=== PATIENT | female | born 1990 | race African-American/Black ===

== ENCOUNTER 2018-03-10 09:36 | Inpatient (IN) | payer OTHER ==
[2018-03-10] MEDS ORDERED: Promethazine HCl 25 MG/ML VIAL IM PRN ×3 (10:38→17:10)
[2018-03-10] MEDS ORDERED: Ondansetron PF 4 MG/2 ML Vial IVP PRN ×3 (10:38→17:10)
--- NOTE | 2018-03-10 10:44 | PDOC.LDHP ---
Labor and Delivery H&P Chief complaint: scheduled section HPI: 27 y/o at 39 and 3/7 weeks, EDC 03/14/18, presents for primary C- section for MACROSOMIA (estimated at 10 pounds, 9 ounces), Polyhydramniose with PAYAL 31.4cm, abnormal 1 hour GCT at 145 reported (but GDM highly suspected), with late transfer of care from [place], [place]. Risks, benefits , and alternatives of discussed with patient, who is unwilling to consider trial of labor for this estimated size and probable GDM. Current gestational age (weeks): 39 Due date: 03/14/18 Grav: 4 Para: 4 Abnormal US findings: Yes ( Macrosomia) Current medications: pre- vitamins Previous surgical history: cholecystectomy - Physical Exam Vital signs reviewed and normal: yes General: NAD, resting Heart: RRR Lungs: nonlabored breathing Abdomen: NTTP Extremeties: no edema FHT: category 1 - Assessment L&D Assessment: scheduled primary section - Plan Plan: admit to L&D, to OR for section
[2018-03-10] MEDS ORDERED: CEFAZOLIN/Water 2 GM/20 ML SYRINGE SLOW IVP SCH (10:45)
[2018-03-10 11:04] VITALS: BMI 37.8
[2018-03-10 11:12] LABS: Hemoglobin 10.1 g/dL (12.0-16.0); Mean Corpuscular HGB CONC 33.6 g/dL (32.0-36.0); Mean Corpuscular Hemoglobin 25.6 pg (27.0-31.0); Mean Corpuscular Volume 76.2 fL (78.0-98.0); Mean Platelet Volume 8.4 fL (7.4-10.4); Platelet Count 291 thou/uL (130-400); RBC Distribution Width 14.5 % (11.5-14.5); Red Blood Cell (RBC) Count 3.96 mill/uL (4.20-5.40)
[2018-03-10] MEDS ORDERED: Bicitra 30 ML UDCUP PO SCH (11:30)
[2018-03-10] MEDS ORDERED: CEFAZOLIN 2 GM/50 ML-DEXTROSE 2 GM in Premix Bag 1 BAG IVPB SCH (11:30)
[2018-03-10 11:51] LABS: HBSAg Index 0.25 S/CO (0-0.99); Hep B Surf Ag Non-Reactive S/CO (NonReactive); Syphilis Antibody Nonreactive (Nonreactive); Syphilis Antibody Index 0.07 S/CO (<1.00 Non-Reactive)
[2018-03-10] MEDS ORDERED: Morphine PF 1 MG/ML SYR ONE (12:16)
[2018-03-10] MEDS ORDERED: Oxytocin 10 UNITS/ML VIAL ONE (12:17)
[2018-03-10] MEDS ORDERED: Ondansetron PF 4 MG/2 ML Vial ONE ×2 (12:17→14:01)
[2018-03-10] MEDS ORDERED: ePHEDrine/0.9% NaCl/PF SYRINGE 50 mg/10 ml ONE ×2 (12:17→14:01)
[2018-03-10] MEDS ORDERED: EPINEPHrine 1 MG/ML AMP ONE (12:17)
[2018-03-10] MEDS ORDERED: Fentanyl 100 MCG/2 ML VIAL ONE (13:12)
[2018-03-10] MEDS ORDERED: Promethazine HCl 25 MG SUPP PR PRN (14:32)
[2018-03-10] MEDS ORDERED: Naloxone HCl 0.4 mg/ml Vial IV PRN (14:32)
[2018-03-10] MEDS ORDERED: Naloxone HCl 0.4 mg/ml Vial IVP PRN ×2 (14:32)
[2018-03-10] MEDS ORDERED: Eucerin (Mineral Oil/Petrolatum,White) 30 gm Jar TOP PRN (14:32)
[2018-03-10] MEDS ORDERED: diphenhydrAMINE 50 MG/ML VIAL IVP PRN (14:32)
[2018-03-10] MEDS ORDERED: Communication Order-Pharmacy FS SCH (14:45)
[2018-03-10] MEDS ORDERED: Ketorolac Tromethamine 30 MG/ML VIAL ONE (15:50)
[2018-03-10] MEDS: Ketorolac Tromethamine 30 MG/ML VIAL IVP PRN ×2 (15:51→22:42)
[2018-03-10] MEDS ORDERED: NS / Oxytocin 40 units/1000ml 1,000 ML ONE (16:14)
[2018-03-10] MEDS ORDERED: diphenhydrAMINE 25 MG CAP PO PRN (17:10)
[2018-03-10] MEDS ORDERED: Bisacodyl 10 MG SUPP PR PRN (17:10)
[2018-03-10] MEDS ORDERED: NS / Oxytocin 40 units/1000ml 1,000 ML IV SCH (17:10)
[2018-03-10] MEDS ORDERED: Zolpidem Tartrate 5 MG TAB PO PRN (17:10)
[2018-03-10] MEDS ORDERED: Lanolin Ointment 7 GM TUBE TOP PRN (17:10)
[2018-03-10] MEDS: Docusate Calcium (SURFAK) 240 MG CAP PO SCH (21:33)
[2018-03-11 06:27] LABS: Mean Corpuscular HGB CONC 32.4 g/dL (32.0-36.0); Mean Corpuscular Volume 77.3 fL (78.0-98.0); Mean Platelet Volume 8.3 fL (7.4-10.4); Platelet Count 212 thou/uL (130-400); RBC Distribution Width 14.4 % (11.5-14.5); Red Blood Cell (RBC) Count 2.78 mill/uL (4.20-5.40)
[2018-03-11] MEDS: Prenatal Vitamin 1 TAB PO SCH (08:45)
[2018-03-11] MEDS: Docusate Calcium (SURFAK) 240 MG CAP PO SCH ×2 (08:45→20:07)
[2018-03-11] MEDS: Ketorolac Tromethamine 30 MG/ML VIAL IVP PRN (08:45)
[2018-03-11] MEDS: Simethicone Chewable 80 MG TAB PO PRN ×2 (08:46→18:08)
[2018-03-11] MEDS ORDERED: Varicella virus, LIVE 0.5 ML VIAL SC ONE (09:00)
[2018-03-11] MEDS ORDERED: Adacel (T-DAP) 0.5 ML SYRINGE IM ONE (09:00)
[2018-03-11] MEDS ORDERED: Measles/Mumps/Rubella 10 MCG/0.5 ML VIAL SC ONE (09:00)
[2018-03-11] MEDS: HYDROcodone/Acetaminophen 5/325 mg Tablet PO PRN ×3 (14:06→22:14)
--- NOTE | 2018-03-11 14:34 | PDOC.PP ---
Post Progress Note Post Day #: 1 PO intake tolerated: yes Flatus: yes Ambulation: yes Vital Signs (12 hours) Temp Pulse Resp BP Pulse Ox 03/11/18 11:34 98.3 F 95 20 110/63 03/11/18 08:13 98.5 F 97 20 114/88 98 03/11/18 04:00 98.1 F 98 16 108/65 Weight Weight 234 lb - Physical Examination General: NAD Cardiovascular: no m/r/g Respiratory: clear to auscultation bilaterally, non-labored breathing Abdominal: lochia, no distention, appropriately TTP Extremities: negative homans (B) Skin: CS incision dry & intact, no rash Neurological: no gross focal deficits Psychiatric: A&Ox3, normal affect (Patient has post operative anemia, likely from acute blood loss during surgery, allthough this may be partially dilutional , etc. Will recheck CBC now. Otherwise, patient is stable, and doing very well.) Result Diagrams: 03/11/18 05:34 Additional Labs: Post Labs Blood Type B POSITIVE 03/10/18 11:02 Hep Bs Antigen Non-Reactive S/CO (NonReactive) 03/10/18 11:01
[2018-03-11 14:49] LABS: #Eosinphils 0.1 thou/uL (0.0-0.7); #Lymphocytes 1.9 thou/uL (1.20-3.40); #Monocytes 1.1 thou/uL (0.11-0.59); #Neutrophils 9.6 thou/uL (1.40-6.50); %Basophils 0.2 % (0.0-1.0); %Eosinophils 0.4 % (0.0-10.0); %Lymphocytes 14.8 % (21.0-51.0); %Monocytes 8.5 % (0.0-10.0); %Neutrophils 76.1 % (42.0-75.0); Mean Corpuscular HGB CONC 32.9 g/dL (32.0-36.0); Mean Corpuscular Hemoglobin 25.5 pg (27.0-31.0); Mean Corpuscular Volume 77.5 fL (78.0-98.0); Mean Platelet Volume 7.9 fL (7.4-10.4); Platelet Count 215 thou/uL (130-400); RBC Distribution Width 14.5 % (11.5-14.5); Red Blood Cell (RBC) Count 2.74 mill/uL (4.20-5.40); White Blood Cell (WBC) Count 12.6 thou/uL (4.8-10.8)
[2018-03-11] MEDS: Ibuprofen 800 MG TAB PO SCH (20:07)
--- NOTE | 2018-03-11 21:29 | OP ---
DATE OF PROCEDURE: 03/10/2018 TIME OF SERVICE: 1302 hours. PREOPERATIVE DIAGNOSES: Intrauterine at 39 weeks and 3 days with macrosomia, suspected missed gestational diabetes given this patient's late transfer of care as well as severe polyhydramnios. Furthermore, this patient has had recurrent gram-negative abscesses around the thighs and the vulva consistent with a hidradenitis suppurativa type picture. She has had multiple rounds of antibiotics with a waxing and waning course of that skin condition. The patient also has some concerns that she may be HSV positive as she was told that by other doctors, although I have not seen any type of lesions myself. PROCEDURES PERFORMED: 1. Primary low transverse section using a Pfannenstiel skin incision. 2. Excision of a large right peritubal cyst measuring approximately 9 x 8 cm. Cyst was sent to pathology for permanent section. QUANTITATIVE BLOOD LOSS: 898 mL. FINDINGS: Viable male weighing 4477 g or 9 pounds 14 ounces. Apgars of 8 and 9. COMPLICATIONS: None. DESCRIPTION OF PROCEDURE: The patient was consented and taken back to the operating room where spinal anesthesia was found to be adequate. She was then prepped and draped in the normal sterile fashion. A timeout was performed by the entire operative team. The incision was then marked with a marking pen tested using sharp pickups. An incision was then made with a scalpel. The incision was carried through the adipose tissue down to the underlying rectus fascia using both sharp dissection as well as cautery. Once the fascia was identified, it was incised in the midline and then the fascial incision was carried through in both lateral directions using sharp as well as cautery dissection techniques. Next, the superior aspect of the rectus fascia was grasped with 2 Lemuel clamps, which was tented up and the rectus muscles were dissected off using blunt dissection as well as cautery dissection. Similarly, the inferior aspect of the fascial incision was grasped with 2 Lemuel clamps, tented up and the rectus muscles were dissected off bluntly as well as sharply. Next, the rectus muscles were in the midline and the peritoneum identified. The peritoneum was then carefully grasped with 2 hemostats and entered sharply. The peritoneal incision was extended superiorly and inferiorly and bladder blade was placed in the lower abdomen. At this point, the uterus was identified and the bladder flap was then developed using pickups with teeth as well as Metzenbaum scissors in both lateral directions. The bladder flap was then dissected downwards using the drop forge operator's finger as well as Metzenbaum scissors. The bladder blade was replaced. The lower uterine segment was then identified and entered sharply using a clean scalpel. The uterine incision was then dissected downwards until thin layer of muscle remained and this was entered bluntly using a hemostat to avoid any injury to the baby. The uterine incision was then stretched using two fingers in both lateral directions. An amniotomy was performed artificially using a hemostat and the baby was delivered using fundal pressure in a gentle fashion. Once out, the baby's mouth and nose were bulb suctioned, cord clamped and cut, and the baby was handed to waiting attendants. Next, the uterus was exteriorized, cleared of all clots and debris and the uterine incision was repaired with #1 Monocryl in a running locking fashion. A 2nd suture of the same type was used to obtain complete hemostasis at the uterine incision. The bladder flap was reapproximated using 3-0 Monocryl. Next, patient's left and right adnexa were inspected and appeared to be within normal limits. The posterior cul-de-sac was blotted dry and hemostasis assured. One more look at the uterine incision demonstrated hemostasis. Next, the uterus was replaced back within the abdomen. The peritoneum was reapproximated using 2-0 Monocryl without difficulty. The rectus muscles were then allowed to come back together and 0 chromic was used to aid in reapproximation of the muscle as necessary. The rectus fascia was then reapproximated in a running fashion using 0 Vicryl suture. The adipose tissue was then examined and appeared to be well approximated without any obvious separations. Finally, the skin was reapproximated with 3-0 Monocryl on a Elvis needle without difficulty and Dermabond adhesive was applied to the skin. Once the glue was dry, the drapes were removed and the patient was transferred to an ambulatory bed where she was taken to recovery awake and in stable condition. Sponge, lap, and needle counts were correct x3. Following closure of the uterus, attention was turned to right peritubal cystic lesion, which was approximately 9 x 8 cm in size and looked to be consistent with a large fluid-filled cyst with a small possible solid component. Although we debated removing it at all during the section, given its large size and potential difficulties with the patient continuing with regular followup postoperatively, the decision was made to remove this lesion and sent it for permanent section. This was done by using 0 chromic stick ties and assuring hemostasis prior to continuation of section. Job ID: [id number]
[2018-03-12] MEDS: HYDROcodone/Acetaminophen 5/325 mg Tablet PO PRN ×3 (03:49→21:35)
[2018-03-12] MEDS: Ibuprofen 800 MG TAB PO SCH ×3 (04:45→21:34)
[2018-03-12] MEDS: Prenatal Vitamin 1 TAB PO SCH (08:24)
[2018-03-12] MEDS: Docusate Calcium (SURFAK) 240 MG CAP PO SCH ×2 (08:25→21:34)
[2018-03-12] MEDS: Simethicone Chewable 80 MG TAB PO PRN ×2 (13:17→21:35)
[2018-03-13] MEDS: HYDROcodone/Acetaminophen 5/325 mg Tablet PO PRN (02:05)
[2018-03-13] MEDS: Ibuprofen 800 MG TAB PO SCH ×2 (06:06→13:38)
[2018-03-13 08:22] VITALS: BP 125/63; TEMP 97.9
--- NOTE | 2018-03-13 08:41 | DIS ---
DATE OF ADMISSION: 03/10/2018 DATE OF DISCHARGE: 03/13/2018 ADMITTING DIAGNOSES: 1. Intrauterine at 39 weeks. 2. macrosomia. 3. Polyhydramnios. DISCHARGE DIAGNOSES: 1. Intrauterine at 39 weeks. 2. macrosomia. 3. Polyhydramnios. PROCEDURE: Primary lower transverse section. CONSULTATIONS: None. HOSPITAL COURSE: The patient is a 27-year-old female followed by Dr. Demetri Yepez, who was admitted on 03/10/2018, for a scheduled primary secondary to macrosomia and polyhydramnios and for complete details, please refer to the operative note. The patient's postoperative course has been uncomplicated. Today, she is postoperative day. She is tolerating p.o., voiding on her own, having decreased lochia, and good pain control. PHYSICAL EXAMINATION: VITAL SIGNS: Blood pressure 126/64, temperature 98.7, pulse of 105, respiratory rate of 18, and saturating 99% on room air. GENERAL: She appears to be in no acute distress. She is alert and oriented, cooperative and pleasant to interact with. ABDOMEN: Fundus is firm. Incision is clean, dry, and intact. EXTREMITIES: Nontender, nonedematous. Her hemoglobin dropped from 10.1 to 7.0 with the , which is appropriate for the estimated blood loss about 900 mL. The patient will be discharged to home. She has instructions to follow up with Dr. Yepez in 2 weeks for an incision check. She has also been given instructions not to lift more than 15 pounds over the next 4 to 6 weeks and to seek medical attention if she experiences fever, increasing pain, redness or drainage from her incision. The patient is being discharged to home with ibuprofen 800 mg to be taken 3 times a day as needed for pain and [place] #30 to be taken every 4 to 6 hours as needed for pain #30. Job ID: [id number]
[2018-03-13] MEDS: Docusate Calcium (SURFAK) 240 MG CAP PO SCH (09:16)
[2018-03-13] MEDS: Prenatal Vitamin 1 TAB PO SCH (09:16)
== END 2018-03-13 14:00 | disposition home or self-care (01) | DRG 783 ==
LOC: L&D 09:36 → 3SW 21:20
PROVIDERS: ADMIT Obstetrics & Gynecology; ATTEND Obstetrics & Gynecology
PROC: 10D00Z1 Extraction of Products of Conception, Low, Open Approach (ICD-10-PCS; principal; 2018-03-10)
PROC: 0UB50ZZ Excision of Right Fallopian Tube, Open Approach (ICD-10-PCS; 2018-03-10)
DX: O36.63X0 Maternal care for excessive fetal growth, third trimester, not applicable or unspecified (principal); O75.3 Other infection during labor; L02.416 Cutaneous abscess of left lower limb; L02.415 Cutaneous abscess of right lower limb; D62 Acute posthemorrhagic anemia; O99.03 Anemia complicating the puerperium; O40.3XX0 Polyhydramnios, third trimester, not applicable or unspecified; O24.429 Gestational diabetes mellitus in childbirth, unspecified control; B96.89 Other specified bacterial agents as the cause of diseases classified elsewhere; L73.2 Hidradenitis suppurativa; O34.83 Maternal care for other abnormalities of pelvic organs, third trimester; O99.72 Diseases of the skin and subcutaneous tissue complicating childbirth; N83.8 Other noninflammatory disorders of ovary, fallopian tube and broad ligament; Z3A.39 39 weeks gestation of pregnancy; Z37.0 Single live birth; Z90.49 Acquired absence of other specified parts of digestive tract
CPT/HCPCS: 36415; 51702; 85027; 86780; 86850; 86900; 86901; 87340; 88305; 88307; J0171; J1885; J2274; J2405; J2590; J3010

== ENCOUNTER 2022-01-11 14:59 | Emergency (ER) | payer OTHER | END 2022-01-11 16:15 | disposition home or self-care (01) | LOC: ERS 14:59 | DX: M54.9 Dorsalgia, unspecified (principal) | CPT/HCPCS: 99284 ==